=== PATIENT | male | born 1945 | race Caucasian/White ===

== ENCOUNTER → 2025-06-04 14:45 | Outpatient (REF) | payer OTHER, SELFPAY | LOC: RCS 14:45 | PROVIDERS: ATTENDING PHYSICIAN Internal Medicine Cardiovascular Disease; FAMILY PHYSICIAN Internal Medicine | DX: I25.5 Ischemic cardiomyopathy (principal); I47.29 Other ventricular tachycardia | CPT/HCPCS: 93306 ==

== ENCOUNTER 2025-06-11 07:25 | Day surgery (SDC) | payer OTHER, SELFPAY ==
[2025-06-11 07:39] VITALS: BP 166/57; BMI 27.7
[2025-06-11 07:57] LABS: Glucose - Point of Care 82 mg/dl (70-99)
--- NOTE | 2025-06-11 08:26 | W.ICD.CONTRA ---
Post ICD/HEAD WOOD GRINDER-D
-
History of TX?: No
LV Function
Left ventricular function study result?: Ejection Fraction >/= 40%
ACEI/ARB/ARNI
Patient already on ACEI/ARB/ARNI: Yes
Beta-Michaelle
Patient already on Beta Michaelle: Yes
[2025-06-11 09:10] VITALS: BP 155/48
--- NOTE | 2025-06-11 09:21 | ITS.CL.ICD ---
Hardware Designer - ICD
Implantable Cardioverter Defibrillator
Procedure Report:
Date of Procedure: June 11, 2025.
Procedures: ICD Pulse Generator Explantation, ICD Pulse Generator Implantation, and Pocket Revision.
Indication: Primary secondary prevention ICD. NYHA heart failure class: II for more than 5 years. LVEF 60%. BiV paced QRS 126 ms. [place] QRS LBBB and was over 170 ms just before initial ICD was placed. History of NSVT. Ischemic cardiomyopathy. No
history of prior ND. LVEF was 30-35% before BiV ICD implant. Shared decision making in the office led to the patient presenting for ICD pulse generator change today
Performing physician: Timothy Mar MD, [facility].
Implant: ICD Pulse Generator: Medtronic; Model# [id number]]; Serial# [id number].
Explanted ICD Pulse Generator (Implanted 01/01/2017): Medtronic; Model# [id number]; Serial# [id number].
Retained Leads (Implanted 01/01/2017):
Atrial Lead: Medtronic: Model# 5076-52cm; Serial# [id number].
Right Ventricular Lead: Medtronic; Model# [id number]; Serial# [id number].
Left Ventricular Lead: Medtronic; Model# 4298-88cm; Serial# [id number].
Technique: A time-out was performed. The procedure site was identified. The anesthesia service anesthetized the patient. Preoperative cefazolin was administered before the skin incision. The patient was prepped and draped in the usual fashion. Local
anesthetic was applied to the left pre-pectoral subcutaneous tissue. A 3-inch incision was made over the pulse generator with the PlasmaBlade. The capsule was entered with PlasmaBlade cautery. The old ICD pulse generator was explanted. No cautery
was applied to the lead system. The leads were appropriately attached to the new ICD pulse generator. The pocket was revised to allow the new device to be inserted. The pocket was irrigated with an antibiotic solution. Hemostasis was excellent. The
device and leads were placed in the pocket. The incision was closed in three layers with an absorbable suture. Steri-strips and and a silver impregnated dressing were applied. The estimated blood loss was 2 mL. There were no complications. No
fluoroscopy was used.
Lead Analysis:
RA lead: P: 2.9 mV; Threshold: 1 V @ 0.4 ms; Impedance: 361 ohms.
RV lead: R: 20 mV; Threshold: 0.5 V @ 0.4 ms; Impedance: 608 ohms. HVB 80 ohms..
LV lead: Threshold: 1 V @ 0.4 ms; Impedance: 589 ohms.
Final Programming: VT/VF 188 bpm; Harris: MVP (AAIR to DDDR) 60-120 bpm.
Conclusion: Uncomplicated ICD change. The ICD system is MRI safe/conditional.
Recommendation: Routine post ICD care.
cc: David Romo MD and Mery Lieberman MD.
[2025-06-11 09:25] VITALS: BP 124/53
[2025-06-11 09:30] VITALS: BP 155/48
[2025-06-11 10:00] VITALS: BP 119/54
[2025-06-11 11:00] VITALS: BP 119/54
== END 2025-06-11 10:34 | disposition home or self-care (01) ==
LOC: CATH 07:25
PROVIDERS: ATTENDING PHYSICIAN Internal Medicine Cardiovascular Disease; FAMILY PHYSICIAN Internal Medicine; OTHER PHYSICIAN Internal Medicine Cardiovascular Disease
DX: Z45.02 Encounter for adjustment and management of automatic implantable cardiac defibrillator (principal); I25.5 Ischemic cardiomyopathy; I44.7 Left bundle-branch block, unspecified; I50.9 Heart failure, unspecified; Z86.79 Personal history of other diseases of the circulatory system; I48.0 Paroxysmal atrial fibrillation; E11.9 Type 2 diabetes mellitus without complications; Z79.01 Long term (current) use of anticoagulants; Z79.899 Other long term (current) drug therapy; I10 Essential (primary) hypertension
CPT/HCPCS: 33264; 82962; 93005; C1882

== ENCOUNTER 2025-08-25 12:56 | Emergency (ER) | payer OTHER, SELFPAY ==
[2025-08-25 13:00] VITALS: BP 133/70
[2025-08-25 13:26] LABS: COVID-19 Antigen Negative (Negative)
--- NOTE | 2025-08-25 14:04 | ED.GENMED ---
History of Present Illness
General
Chief Complaint: Cold/Flu/URI Symptoms
Source: patient
Exam Limitations: none
Time Seen by Provider: 08/25/25 14:03
Nursing documentation reviewed up to this point in time: agreed with
History of Present Illness
History of Present Illness:
Patient is a 79-year-old male past medical history of asthma COPD lung cancer left prior, lobectomy sleep apnea A-fib cardiomyopathy CHF CAD defibrillator on Eliquis presents to the ER for evaluation. Patient has had cough and cold symptoms for the
past several days however last night he had significant coughing was up throughout the night. he reported subjective fevers. He did use his inhaler without relief. He does feel short of breath with exertion. He denies any extremity swelling.
He is a smoker. He is followed by pulmonary here at [place]. He denies any fever or chills. had similar viral symptoms. No chest pain.
He is a current smoker.
Past History
Past History
ED Past Medical History: Arrthythmia (Atrial fib), CAD, HTN, Hypercholesterolemia, IDDM and Other (Ischemic cardiomyopathy with EF of 33%, left bundle branch block, biventricular cardio defibrillator in December 2016, CABG �4 in August 2016 at
[facility] with postoperative pericarditis,Mild Emphysema)
ED Past Surgical History: Cardiac (Pacer/defib)
Social History
Tobacco: Smoker
Alcohol: Occasional
Drug: None
Personal:
Living: with family
Family History
Family History: Other (n/c)
Phy Exam
General Physical Exam
General Presentation: no apparent distress
General age: appears stated age
General Skin: warm and dry
General Habitus: normal
General Mental: alert
General Hydration: appears well hydrated
Cardiovascular Exam
Cardiovascular Exam: regular rate/rhythm, no murmur and normal peripheral pulses
Pulmonary Exam
Pulmonary Exam: other (Decreased throughout expiratory wheezing)
Neurological Exam
Neurological Exam: alert and oriented x3
Musculoskeletal Exam
Musculoskeletal Exam: full ROM
Skin Exam
Skin Exam: normal color and warm/dry
Psychiatric Exam
Psychiatric Exam: normal mood/affect
Course
Orders/Labs/Results
Orders:
Orders
08/25/25 13:02
CR Chest - 2 Views Urgent
Comment:
Reason For Exam: cough/uri
08/25/25 13:04
COVID-19 Antigen Urgent
Source: Nasal Swab
Influenza A+B Rapid Molecular Urgent
TIMI Source: Nasal Swab
Specimen Description:
08/25/25 14:13
Cardiac Monitoring- Treatment ONCE
IV Insert/Care/Rem.- Treatment PRN
Albuterol Sulfate [Ventolin Nebules] 7.5 mg INH R NOW STA
Dexamethasone Sod Phosphate [Decadron] 10 mg IV NOW STA
Ipratropium Nebs [Atrovent Nebules] 1 mg INH R NOW STA
08/25/25 14:38
Complete Blood Count/With Diff Urgent
Comprehensive Metabolic Panel Urgent
Abnormal Lab Results
08/25/25
14:38
WBC 12.4 H 10^3/uL
(4.8-10.8)
RBC 4.42 L 10^6/uL
(4.70-6.10)
MCV 99.8 H fL
(80.0-94.0)
MCH 33.3 H pg
(27.0-31.0)
Absolute Neuts (auto) 9.7 H 10^3/uL
(1.4-6.5)
Absolute Monos (auto) 1.2 H 10^3/uL
(0.1-0.6)
Neutrophils % 78.0 H %
(42.2-75.2)
Lymphocytes % 11.7 L %
(20.5-51.1)
Carbon Dioxide 31 H mmol/L
(22-30)
08/25/25 14:38
08/25/25 14:38
Vital Signs
Initial and Last Documented VS:
Initial Vital Signs
Temp Pulse Resp BP Pulse Ox
99.1 F 68 20 133/70 93
08/25/25 13:00 08/25/25 13:00 08/25/25 13:00 08/25/25 13:00 08/25/25 13:00
Last Documented Vital Signs
Temp Pulse Resp BP Pulse Ox
99.1 F 68 20 133/70 93
08/25/25 13:00 08/25/25 13:00 08/25/25 13:00 08/25/25 13:00 08/25/25 14:06
MDM/Problems Addressed
Differential Diagnosis Includes:
not limited to: COPD exacerbation, bronchitis, pneumonia, viral syndrome, COVID, influenza
MDM/Problems Addressed:
As documented patient is a-year-old male with significant past medical history including COPD asthma currently a smoker history of lung cancer lobectomy presents for cough. Patient has had cough and congestion for the past several days reports
subjective low-grade fever at home. On exam he had obvious wheezing and was decreased throughout initially however was well-appearing.
Pt was given an hour nebulizer and feels significantly improved. His wheezing has improved. He was also given Decadron. We did discuss the risks and benefits of Decadron as he is a diabetic however short course of steroids. He does monitor his
sugars frequently and I did review this with patient. His x-ray is negative for pneumonia there is a nodule but he will need to have follow-up for. I did review the need for a CAT scan. He was given a copy of his x-ray. Symptoms are consistent
with COPD exacerbation/bronchitis
He ambulated here and feels much better less short of breath pulse ox is around 92% however he is a smoker and this may very well be his baseline. He feels well up to go home and wants to go home. Discussed close outpatient follow-up family. Will
give patient prescription for albuterol inhaler as well as steroids for the next 4 days. I did review smoking cessation with pt.
Chronic conditions affecting care:
COPD , asthma smoker, hx of lung ca
*Radiology
Radiology exam reviewed: radiology read reviewed
*Pulse Oximetry
SaO2: 93
Oxygen Mode of Delivery: Room air
Patient hypoxic: no
*Critical Care Note
Total Time (30-74mins, 75-104mins- exclusive of procedures): Not Applicable
ED Attending Note
-
Portions of this chart may have been created with voice recognition software.� Occasional wrong word or��sound alike� substitutions may have occurred due to the inherent limitations of voice recognition software.
Discharge Plan
Departure
Patient Disposition: Home (Routine Discharge)
Date of Disposition: 08/25/25
Time of Disposition: 16:54
Patient with high blood pressure during this ER visit?: Yes
Condition: Fair
Covid-19: Not Applicable
Discharge Problem:
COPD exacerbation, Acute bronchitis
Instructions: Acute Bronchitis, Adult (DC), Viral Syndrome (DC), COPD exacerbation in adults - ED (DC), BLOOD PRESSURE
Prescriptions:
New
albuterol sulfate [Ventolin HFA] 90 mcg/actuation HFA aerosol inhaler
2 inh inhalation Q6H PRN (Reason: shortness of breath or wheezing) Qty: 8.5 0RF
prednisone 20 mg tablet
40 mg PO DAILY Qty: 8 0RF
No Action
Repatha SureClick 140 MG/ML pen injector
1 syringe INJ Q2W
aspirin 81 MG tablet,delayed release (DR/EC)
81 mg PO DAILY Qty: 0 0RF
metoprolol succinate 50 MG tablet extended release 24 hr
50 mg PO HS
losartan 25 MG tablet
50 mg PO QPM
potassium chloride 10 MEQ tablet,ER particles/crystals
10 meq PO PRN PRN (Reason: muscle cramps)
metoprolol succinate 25 MG tablet extended release 24 hr
25 mg PO DAILY
amlodipine 2.5 MG tablet
2.5 mg PO DAILY
nitroglycerin 0.4 MG tablet, sublingual
0.4 mg sublingual [id number] PRN (Reason: chest pain)
Patient Comments:
never used
albuterol sulfate 1 PUFF HFA aerosol inhaler
1 puff inhalation R Q4HPRN PRN (Reason: SOB)
fluticasone furoate [Arnuity Ellipta] 100 MCG blister with device
100 mcg IH DAILY
Eliquis 5 MG tablet
5 mg PO BID
PreserVision AREDS-2 1 EACH capsule
1 ea PO BID
tramadol 50 mg tablet
50 mg PO Q6H PRN (Reason: moderate to severe pain) Qty: 28 0RF
insulin glargine [Lantus U-100 Insulin] 1,000 UNITS/10 ML solution
40 unit SC DAILY@0800 Qty: 0 0RF
Rx Instructions:
sliding scale
cephalexin [cephalexin] 500 mg capsule
500 mg PO Q8H Qty: 3 0RF
Rx Instructions:
First dose due at 2pm today
Referrals:
Alejandro Romo MD [Family Provider, Internal Medicine]
Activity Restrictions/Additional Instructions:
As discussed your x-ray was negative for pneumonia however you will need additional imaging including chest CAT scan to further evaluate findings.
You may use your albuterol inhaler 2 puffs every 4-6 hours as needed. Also as discussed please start prednisone tomorrow for the next 4 days. 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
needed. Return if any worsening of symptoms including increasing shortness of breath fever chills.
As discussed please closely monitor your blood sugar as steroids will increase your blood sugar. In addition is recommend that you stop smoking
Interventions
Interventions:
*Risk Screen - Suicide Last Done: 08/25/25 14:52
*General Assessment Last Done: 08/25/25 13:00
*Neglect/Abuse Screening Last Done: 08/25/25 14:52
*ED- Fall Risk Assessment Last Done: 08/25/25 14:51
*ED COVID-19 Vaccine History Last Done: 08/25/25 14:51
*ED Influenza Vaccine History Last Done: 08/25/25 14:51
*Nursing Disposition Last Done: 08/25/25 17:09
ED- Pulmonary Assessment Last Done: 08/25/25 14:50
Discharge Date and Time
Discharge Date/Time: 08/25/25 17:09
Print Language: MARSHALLESE
[2025-08-25] MEDS: DECADRON 10 MG IV (14:39)
[2025-08-25] MEDS: ATROVENT NEBULES 1 MG INH (14:40)
[2025-08-25] MEDS: VENTOLIN NEBULES 7.5 MG INH (14:40)
[2025-08-25 14:46] LABS: Hematocrit 44.1 % (39.0-52.0); Hemoglobin 14.7 g/dL (13.0-18.0); Mean Corp Hgb Conc. 33.3 g/dL (33.0-37.0); Mean Corpuscular Volume 99.8 fL (80.0-94.0); Nucleated Red Blood Cells % 0 % (-); Platelet Count 217 10^3/uL (130-400); Red Cell Dist. Width 12.5 % (11.5-14.5)
[2025-08-25 14:51] VITALS: BMI 25.2
[2025-08-25 15:03] LABS: ALT (SGPT) 23 U/L (0-50); AST (SGOT) 23 U/L (17-59); Albumin 4.5 g/dl (3.5-5.0); Alkaline Phosphatase 81 U/L (38-126); Blood Urea Nitrogen 17 mg/dl (9-20); Calcium 9.7 mg/dl (8.4-10.2); Carbon Dioxide 31 mmol/L (22-30); Chloride 105 mmol/L (98-107); Estimated Creatinine Clearance 92 ml/min; Glucose 71 mg/dl (70-99); Potassium 4.9 mmol/L (3.5-5.1); Sodium 137 mmol/L (135-145); Total Protein 7.0 g/dl (6.3-8.2); eGFR > 60.00
[2025-08-25 16:30] VITALS: O2SAT 92; O2SAT 95
== END 2025-08-25 17:09 | disposition home or self-care (01) ==
LOC: EMR 12:56
PROVIDERS: Emergency Medicine; Nurse Practitioner; EMERGENCY PHYSICIAN Student in an Organized Health Care Education/Training Program; FAMILY PHYSICIAN Internal Medicine
DX: J44.1 Chronic obstructive pulmonary disease with (acute) exacerbation (principal); J20.9 Acute bronchitis, unspecified; I48.91 Unspecified atrial fibrillation; E11.9 Type 2 diabetes mellitus without complications; E78.00 Pure hypercholesterolemia, unspecified; G47.30 Sleep apnea, unspecified; F17.200 Nicotine dependence, unspecified, uncomplicated; I10 Essential (primary) hypertension; I25.10 Atherosclerotic heart disease of native coronary artery without angina pectoris; J43.9 Emphysema, unspecified; Z95.1 Presence of aortocoronary bypass graft; Z85.118 Personal history of other malignant neoplasm of bronchus and lung; Z11.52 Encounter for screening for COVID-19
CPT/HCPCS: 94640; 96374; 99284; 71046; 80053; 85025; 87502; 87811